=== PATIENT | female | born 1965 | race Caucasian/White ===

== ENCOUNTER 2016-05-31 07:06 | Emergency (ER) | payer OTHER ==
[~2016-05-31] VITALS: Ht 170.2 cm; Wt 81.6 kg
[~2016-05-31 07:06] MED LIST: HYDROMORPHONE HC4 M1; PERCOCET 5/3251 TAB PO
[2016-05-31 07:16] VITALS: BP 121/80
--- NOTE | 2016-05-31 07:20 | NUR ---
Pt ambulated to bed 5.
--- NOTE | 2016-05-31 07:28 | NUR ---
Dr. Kimbrough evaluating patient at bedside.
--- NOTE | 2016-05-31 07:30 | NUR ---
51/F presents to ED for evaluation of left upper leg cellulitis x2 weeks. Patient states she burned her leg approximately 2 weeks ago. Pt states she went to see her PMD and they referred her to the ED for further evaluation. Pt has redness to left upper thigh, no drainage noted. Patient ambulates with steady gait. Pt c/o 8/10 pain to left upper thigh. Patient is AOX4, denies fever or chills. Afebrile. Patient is calm and relaxed, no visible signs of distress.
[2016-05-31] MEDS ORDERED: NACL 0.9% 500 ML IV ONE (07:35)
[2016-05-31] MEDS ORDERED: AMPICILLIN/SULBACTAM 1.5 GM in NACL 0.9% 50 ML IV ONE (07:35)
[2016-05-31] MEDS ORDERED: AMPICILLIN/SULBACTAM 1.5 GM VIAL ONE (07:41)
--- NOTE | 2016-05-31 07:59 | NUR ---
Patient ambulated to restroom to provide UA.
--- NOTE | 2016-05-31 08:13 | NUR ---
Patient provided with warm blanket and placed in position of comfort.
[2016-05-31] MEDS ORDERED: BACITRACIN OINT 500 UNITS/GM PKT TP ONE (08:55)
--- NOTE | 2016-05-31 09:07 | NUR ---
IV removed, catheter intact and site benign. Applied folded 4x4 gauze and tape to stop bleeding.
[2016-05-31 09:38] VITALS: BP 115/85
--- NOTE | 2016-05-31 09:39 | NUR ---
Patient discharged with v/s stable. Written and verbal after care instructions given and explained. Patient alert, oriented and verbalized understanding of instructions. Ambulatory with steady gait. All questions addressed prior to discharge. ID band removed. Patient advised to follow up with PMD. Rx of NORCO AND BACTRIM given. Patient educated on indication of medication including possible reaction and side effects. Opportunity to ask questions provided and answered.
== END 2016-05-31 09:07 | disposition home or self-care (01) ==
LOC: MED 07:06
DX: L03.116 Cellulitis of left lower limb (principal); F17.200 Nicotine dependence, unspecified, uncomplicated; K21.9 Gastro-esophageal reflux disease without esophagitis; F15.10 Other stimulant abuse, uncomplicated; F12.10 Cannabis abuse, uncomplicated
CPT/HCPCS: 36415; 80053; 80305; 81001; 81025; 85025; 96365; 99284; J0295; J7030

== ENCOUNTER 2020-07-09 16:02 | Emergency (ER) | payer OTHER ==
[~2020-07-09] VITALS: Ht 170.2 cm; Wt 90.7 kg
[~2020-07-09 16:02] MED LIST changes: +HYDR4TAB11; -HYDROMORPHONE HC4 M1; +OXYC1TAB PO; -PERCOCET 5/3251 TAB PO
[2020-07-09 16:10] VITALS: BP 147/100
[2020-07-09] MEDS ORDERED: HYDROcodone/APAP 5/325 MG 1 TAB TAB PO ONE (16:40)
[2020-07-09] MEDS ORDERED: TRAM50TA3 PO (16:41)
[2020-07-09] MEDS ORDERED: CEPH500T PO (16:41)
[2020-07-09] MEDS ORDERED: SULF-59 PO (16:41)
[2020-07-09 16:52] VITALS: BP 147/100
== END 2020-07-09 16:52 | disposition home or self-care (01) ==
LOC: MED 16:02
DX: L03.116 Cellulitis of left lower limb (principal); K21.9 Gastro-esophageal reflux disease without esophagitis; Z79.899 Other long term (current) drug therapy
CPT/HCPCS: 99283

== ENCOUNTER 2021-08-13 11:38 | Emergency (ER) | payer OTHER ==
[~2021-08-13] VITALS: Ht 170.2 cm; Wt 92.1 kg
[~2021-08-13 11:38] MED LIST changes: +CEPH500T PO; +SULF-59 PO; +TRAM50TA3 PO
[2021-08-13 11:55] VITALS: BP 121/99
--- NOTE | 2021-08-13 11:58 | NUR ---
56 Y/O FEMALE BIB SELF C/O CELLULITIS AND BURNING PAIN IN THE LEFT LOWER LEG 7/10 REDNESS NOTED ON THE AREA. PT STATES THIS HAS BEEN GOING ON FOR YEARS NOW, AND WAS TAKING KEFLEX FOR THE CELLULITIS, AND IT DISAPPEARS. CURRRENTLY NOT ON ANY MEDICATION FOR THE CELLULITIS, PUTS COCONUT OIL ON THE AREA. PMH; CHOLYCSTECTOMY NKA
--- NOTE | 2021-08-13 12:27 | NUR ---
DR MURRAY AT BEDSIDE
[2021-08-13] MEDS ORDERED: NACL 0.9% 1,000 ML IV ONE (12:40)
[2021-08-13] MEDS ORDERED: GABAPENTIN 300 MG CAP PO ONE (12:40)
[2021-08-13] MEDS ORDERED: KETOROLAC 30 MG/ML VIAL IVP ONE (12:40)
[2021-08-13] MEDS ORDERED: cefTRIAXone 1,000 MG VIAL ONE (12:57)
[2021-08-13 13:55] VITALS: BP 127/91
[2021-08-13] MEDS ORDERED: CEPH-588 PO ×2 (14:04→14:17)
[2021-08-13] MEDS ORDERED: IBUP-2213 PO ×2 (14:04→14:17)
[2021-08-13] MEDS ORDERED: GABA300C PO ×2 (14:04→14:17)
[2021-08-13] MEDS ORDERED: DIPH25TA53 PO ×2 (14:11→14:17)
[2021-08-13] MEDS ORDERED: HYDR28CR38 TP ×2 (14:11→14:17)
--- NOTE | 2021-08-13 14:17 | NUR ---
Patient discharged with v/s stable. Written and verbal after care instructions ABOUT CELLULITIS given and explained. Patient alert, oriented and verbalized understanding of instructions. Ambulatory with steady gait. All questions addressed prior to discharge. ID band removed. Patient advised to follow up with PMD. Rx of KEFLEX, GABAPENTIN, IBUPROFEN given. Patient educated on indication of medication including possible reaction and side effects. Opportunity to ask questions provided and answered.
== END 2021-08-13 14:18 | disposition home or self-care (01) ==
LOC: MED 11:38
DX: L03.116 Cellulitis of left lower limb (principal); R03.0 Elevated blood-pressure reading, without diagnosis of hypertension; K21.9 Gastro-esophageal reflux disease without esophagitis; Z90.49 Acquired absence of other specified parts of digestive tract; Z79.899 Other long term (current) drug therapy; Z79.1 Long term (current) use of non-steroidal anti-inflammatories (NSAID); Z79.2 Long term (current) use of antibiotics; Z79.891 Long term (current) use of opiate analgesic
CPT/HCPCS: 96365; 96375; 99284; J0696; J1885; J7030

== ENCOUNTER 2021-10-10 14:24 | Emergency (ER) | payer OTHER ==
[~2021-10-10] VITALS: Ht 170.2 cm; Wt 92.3 kg
[~2021-10-10 14:24] MED LIST changes: +CEPH-588 PO; +DIPH25TA53 PO; +GABA300C PO; +HYDR28CR38 TP; +IBUP-2213 PO
[2021-10-10 14:50] VITALS: BP 146/85
[2021-10-10] MEDS ORDERED: cephALEXin 500 MG CAP PO ONE (15:40)
[2021-10-10] MEDS ORDERED: SULFAMETH/TRIMETH DS 800/160MG 1 TAB PO ONE (15:40)
--- NOTE | 2021-10-10 15:40 | NUR ---
PT AMBULATED TO BED 6
--- NOTE | 2021-10-10 16:00 | NUR ---
56YO FEMALE PT C/O L LEG PAIN. PT PRESENTS WITH CELLULITIS THAT HAS BEEN GETTING WORST IN THE LAST 3 DAYS. PT STATES TAKING ANTIBIOTICS 2 WEEKS AGO AND HAD MILD RELIEF. PT PRESENTS WITH CELLULITIS IN L INNER LEG ALONG WITH 3 SMALL ULCERS ON HEAL OF TOE. ALSO PRESENTS WITH REDDENED LOWER LEG FROM SCRATCHING. PT STATES 01/27 AND DENIES TAKING MEDICATION FOR PAIN TODAY. PT AAOX4, IN VISIBLE DISTRESS. RESPIRATIONS EVEN AND UNLABORED NKA HX: DENIES
[2021-10-10] MEDS ORDERED: GABAPENTIN 300 MG CAP PO ONE (16:40)
[2021-10-10] MEDS ORDERED: CEPH-588 PO (17:23)
[2021-10-10] MEDS ORDERED: SULF-59 PO (17:23)
[2021-10-10] MEDS ORDERED: HYDROcodone/APAP 5/325 MG 1 TAB TAB PO ONE (17:40)
[2021-10-10] MEDS ORDERED: HYDROcodone/APAP 10/325 MG 1 TAB TAB ONE (17:45)
[2021-10-10 18:00] VITALS: BP 128/92
[2021-10-10] MEDS ORDERED: GABA-640 PO (18:01)
--- NOTE | 2021-10-10 18:03 | NUR ---
Patient discharged with v/s stable. Written and verbal after care instructions FOR CELLULITIS AND PERIPHERAL VASCULAR DISEASE given and explained. Patient alert, oriented and verbalized understanding of instructions. Ambulatory with steady gait. All questions addressed prior to discharge. ID band removed. Patient advised to follow up with PMD. Rx of KEFLEX AND BACTRIM DS TABLE given. Opportunity to ask questions provided and answered.
--- NOTE | 2021-10-10 18:04 | NUR ---
The patient's care was reviewed and supervised by Lisy Tidwell RN.
== END 2021-10-10 18:03 | disposition home or self-care (01) ==
LOC: MED 14:24
DX: L03.116 Cellulitis of left lower limb (principal); K21.9 Gastro-esophageal reflux disease without esophagitis; Z90.49 Acquired absence of other specified parts of digestive tract
CPT/HCPCS: 73610; 99284; Q0092